=== PATIENT | male | born 1970 | race Caucasian/White ===

== ENCOUNTER 2018-01-21 12:06 | Emergency (ER) | payer OTHER ==
[~2018-01-21] VITALS: Ht 182.9 cm; Wt 108.9 kg
[2018-01-21 12:07] VITALS: BP 150/93
[2018-01-21] MEDS ORDERED: TRAMADOL 50 MG50 MG PO (12:47)
[2018-01-21] MEDS ORDERED: NAPROSYN500 MG PO (12:47)
== END 2018-01-21 13:00 | disposition home or self-care (01) ==
LOC: ER 12:06
DX: K11.21 Acute sialoadenitis (principal); Z88.0 Allergy status to penicillin

== ENCOUNTER 2018-03-20 15:54 | Emergency (ER) | payer OTHER ==
[~2018-03-20] VITALS: Ht 182.9 cm; Wt 111.1 kg
[~2018-03-20 15:54] MED LIST: NAPROSYN500 MG PO; TRAMADOL 50 MG50 MG PO
[2018-03-20 15:56] VITALS: BP 137/80
[2018-03-20] MEDS ORDERED: NAPROSYN500 MG PO (16:35)
[2018-03-20] MEDS ORDERED: FLAGYL500 M1 PO (16:35)
[2018-03-20] MEDS ORDERED: KEFLEX500 M1 PO (16:35)
[2018-03-20] MEDS ORDERED: ULTRAM 50MG TAB50 MG PO (16:35)
== END 2018-03-20 16:45 | disposition home or self-care (01) ==
LOC: ER 15:54
DX: K11.20 Sialoadenitis, unspecified (principal)